=== PATIENT | female | born 1975 | race Caucasian/White ===

== ENCOUNTER 2023-02-25 22:29 | Emergency (ER) | payer SELFPAY ==
[~2023-02-25] VITALS: Ht 157.5 cm; Wt 64.0 kg
[2023-02-25 22:55] VITALS: O2SAT 98
[2023-02-26 00:10] LABS: BASOPHILS % 0.4 % (0.0-2.0); DIFFERENTIAL COMMENT 0; EOSINOPHILS % 1.8 % (0.0-5.0); HEMATOCRIT. 36.3 % (36.0-48.0); HEMOGLOBIN. 11.7 g/dL (12.0-16.0); LYMPHOCYTES % 16.1 % (20.0-50.0); MEAN CORPUSCULAR HEMOGLOBIN 23.5 pg (28.0-32.0); MEAN CORPUSCULAR HGB CONC 32.3 g/dL (31.0-37.0); MEAN CORPUSCULAR VOLUME 72.6 fL (81.0-99.0); MEAN PLATELET VOLUME 8.6 fl (7.4-10.4); MONOCYTES % 11.4 % (2.0-8.0); NEUTROPHILS % 70.3 % (40.0-76.0); PLATELET 261 x1000/uL (130-400); RED CELL DISTRIBUTION WIDTH 20.9 % (11.6-14.6); WHITE BLOOD COUNT 7.2 x1000/uL (4.5-11.0)
[2023-02-26 00:16] LABS: CHLORIDE 112 mEq/L (98-107); INDEX HEMOLYSI 1 (1-3); INDEX ICTERIC 1 (1-4); INDEX LIPEMIC 1 (1-3); POTASSIUM 3.9 mEq/L (3.5-5.1); SODIUM 139 mEq/L (136-145)
[2023-02-26 00:24] LABS: ALANINE AMINOTRANSFERASE 106 IU/L (13-61); ALBUMIN 3.8 g/dL (3.4-5.0); ASPARTATE AMINOTRANSFERASE 72 IU/L (15-37); BILIRUBIN TOTAL 0.2 mg/dL (0.1-1.0); CALCIUM 8.7 mg/dL (8.5-10.1); CARBON DIOXIDE 24 mEq/L (21-32); CREATININE 0.5 mg/dL (0.6-1.3); GLUCOSE 127 mg/dL (70-105); PROTEIN TOTAL 7.9 g/dL (6.0-8.3); UREA NITROGEN BLOOD 12 mg/dL (7-21)
[2023-02-26] MEDS ORDERED: HYDR25SU51 RC (03:31)
[2023-02-26 03:53] VITALS: BP 129/77; PULSE 79; RESP 18; TEMP 98.4
== END 2023-02-26 03:54 | disposition home or self-care (01) ==
LOC: EDBD 22:29 → ER 22:29
DX: K62.5 Hemorrhage of anus and rectum (principal); D64.9 Anemia, unspecified
CPT/HCPCS: 36415; 80053; 81025; 85025; 99283